=== PATIENT | male | born 1980 | race Caucasian/White ===

== ENCOUNTER 2018-03-29 14:20 | Outpatient (CLI) | payer OTHER | END 2018-03-29 14:21 | disposition critical access hospital (66) | LOC: EMS 14:20 | PROVIDERS: ATTEND Surgery | DX: S99.911A Unspecified injury of right ankle, initial encounter (principal); X50.0XXA Overexertion from strenuous movement or load, initial encounter; Y93.89 Activity, other specified; Y92.69 Other specified industrial and construction area as the place of occurrence of the external cause; Y99.0 Civilian activity done for income or pay | CPT/HCPCS: A0425; A0427 ==

== ENCOUNTER 2018-03-29 14:58 | Emergency (ER) | payer OTHER ==
--- NOTE | 2018-03-29 15:19 | ED Physician Documentation ---
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 No: Weakness, Numbness, Discolored Contributing factors: No: Anticoagulated Similar symptoms before: Has not had sx before Recently seen: Not recently seen Review of Systems Nose: denies: Rhinorrhea / runny nose, Congestion Throat: denies: Sore throat Cardiac: denies: Chest pain / pressure Respiratory: denies: Cough GI: denies: Abdominal Pain, Nausea, Vomiting Musculoskeletal: reports: Joint pain (right ankle), Joint swelling Neurologic: denies: Focal weakness, Numbness, Headache, Head injury Immunocompromised: denies: Immunocompromised PD PAST MEDICAL HISTORY - Past Medical History Cardiovascular: None Respiratory: None Neuro: None Endocrine/Autoimmune: None Musculoskeletal: None - Present Medications Home Medications: Ambulatory Orders Medication Instructions Recorded Confirmed HYDROcod/ACETAM 5/325 [[place] 5/325] 1 tab PO Q6H PRN #25 tablet 03/29/18 Naproxen [Naprosyn] 500 mg PO BID PRN #30 tablet 03/29/18 - Allergies Allergies/Adverse Reactions: Allergies Allergy/AdvReac Type Severity Reaction Status Date / Time No Known Drug Allergies Allergy Verified 03/29/18 15:06 PD ED PE NORMAL - Vitals Vital signs reviewed: Yes - General General: Alert and oriented X 3, No acute distress (right ankle in splint and patient seems comfortable enough with that. ), Well developed/nourished - HEENT HEENT: Atraumatic - Neck Neck: Supple, no meningeal sign, No bony TTP, No adenopathy - Cardiac Cardiac: RRR, No murmur - Respiratory Respiratory: Clear bilaterally - Abdomen Abdomen: Soft, Non tender - Back Back: No spinal TTP - Derm Derm: Normal color, Warm and dry - Extremities Extremities: Other (right ankle with tenderness and swelling fibular side above the mortis itself. Also tender medial malleolus with swelling. Achilles intact. Normal pulses, color, cap refill distally. ) - Neuro Neuro: Alert and oriented X 3, No motor deficit, No sensory deficit, Normal speech Eye Opening: Spontaneous Motor: Obeys Commands Verbal: Oriented GCS Score: 15 Results - Vitals Vitals: Vital Signs - 24 hr 03/29/18 03/29/18 15:00 17:49 Temperature 36.6 C Heart Rate 86 85 Respiratory 18 18 Rate Blood Pressure 186/107 H 165/105 H O2 Saturation 96 98 Oxygen O2 Source Room air - Rads (name of study) tib/fib and ankle Radiology: Prelim report reviewed, EMP read contemporaneously (distal fibular fracture above the ankle of the mortis. Medially ankle with small avulsion fracture and widening of the medial mortis. ) Procedures - Splint (location) right ankle Splint applied by: Tech Type of splint: Fiberglass, Posterior, Stirrup Other: Patient tolerated well, No complications, Neurovascular intact, Crutches provided PD MEDICAL DECISION MAKING - ED course Complexity details: reviewed results, re-evaluated patient (given IV Morphine to help with xray and splinting manipulations. ), considered differential, d/w patient, d/w urban design consultant (Dr. Cha - to splint and follow up in office. ) - Sepsis Event Vital Signs: Vital Signs - 24 hr 03/29/18 03/29/18 15:00 17:49 Temperature 36.6 C Heart Rate 86 85 Respiratory 18 18 Rate Blood Pressure 186/107 H 165/105 H O2 Saturation 96 98 Oxygen O2 Source Room air Departure - Departure Disposition: 01 Home, Self Care Clinical Impression: Bimalleolar fracture of right ankle Qualifiers: Encounter type: initial encounter Fracture type: closed Qualified Code(s): S82.841A - Displaced bimalleolar fracture of right lower leg, initial encounter for closed fracture Condition: Stable Record reviewed to determine appropriate education?: Yes Instructions: ED Fx Ankle General Follow-Up: Darci Cha MD [Provider Admit Priv/Credential] - Prescriptions: HYDROcod/ACETAM 5/325 [[place] 5/325] 1 tab PO Q6H PRN #25 tablet PRN Reason: Pain Naproxen [Naprosyn] 500 mg PO BID PRN #30 tablet PRN Reason: Pain Comments: Keep the splint on until follow-up with orthopedics. Call the orthopedic office tomorrow for an follow-up appointment for the end of the week. Use crutches for nonweightbearing. Ice elevate and rest the ankle often to reduce swelling. Use naproxen or ibuprofen twice daily for pain and inflammation. Add Tylenol or hydrocodone if needed for pain. This might need surgery to help stabilize the ligaments and bones around the ankle so it is in good location. Follow-up with orthopedics as planned for deciding if it needs surgery or just casting at that point. Either way you will not be able to walk fully or be back to work for likely 4-6 weeks. Forms: Activity restrictions
[2018-03-29] MEDS ORDERED: MORPHINE 10 MG/ML VIAL IVP STA ×3 (15:26→17:39)
--- NOTE | 2018-03-29 16:35 | XRAY Report ---
Procedure Date: 03/29/2018 Accession Number: [id number] / [id number] Procedure: XR - Tib/Fib RT CPT Code: FULL RESULT: EXAM: RIGHT TIBIA/FIBULA RADIOGRAPHY EXAM DATE: 03/29/2018 04:16 PM. CLINICAL HISTORY: Right lower leg/ankle injury today. COMPARISON: None. TECHNIQUE: 2 views. FINDINGS: Bones: Oblique fracture of distal fibular diaphysis with about 90% apposition. Otherwise unremarkable. Joints: Unremarkable knee. Widening of ankle mortise medially indicating disruption of the deltoid ligament. There is disruption of distal interosseous ligament and distal tibiofibular ligament as well. Soft Tissues: Mild soft tissue swelling. IMPRESSION: Distal fibular fracture with associated ligamentous injuries. RADIA
--- NOTE | 2018-03-29 17:00 | XRAY Report ---
Procedure Date: 03/29/2018 Accession Number: [id number] / [id number] Procedure: XR - Ankle 2 View RT CPT Code: FULL RESULT: EXAM: RIGHT ANKLE RADIOGRAPHY EXAM DATE: 03/29/2018 04:42 PM. CLINICAL HISTORY: Ankle injury. COMPARISON: Same day. TECHNIQUE: 1 views. FINDINGS: There is an oblique fracture of the distal fibular diaphysis with one half shaft width lateral displacement distal fragment. 3 mm mineralized density projects distal to the medial malleolus. Mild widening of the medial ankle clear space. No dislocation evident. Soft tissue swelling. IMPRESSION: 1. Mildly displaced distal fibula diaphyseal fracture. 2. Possible medial malleolus avulsion fracture. Widening of the medial clear space is consistent with ligamentous injury. RADIA
[2018-03-29] MEDS ORDERED: KETOROLAC 60 MG/2 ML VIAL IVP STA (17:39)
[2018-03-29 17:49] VITALS: BP 165/105
== END 2018-03-29 18:00 | disposition home or self-care (01) ==
LOC: EDBD → ED 14:58
DX: S82.841A Displaced bimalleolar fracture of right lower leg, initial encounter for closed fracture (principal); X50.1XXA Overexertion from prolonged static or awkward postures, initial encounter; Y93.89 Activity, other specified; Y99.0 Civilian activity done for income or pay
CPT/HCPCS: 1040M; 29515; 73590; 73600; 96374; 96375; 96376; 99283

== ENCOUNTER 2018-04-06 06:10 | Day surgery (SDC) | payer OTHER ==
[2018-04-06] MEDS ORDERED: ceFAZolin 2 GM/50 ML 2 GM/50 ML BAG IV ONE (06:34)
[2018-04-06] MEDS ORDERED: LACTATED RINGERS 1,000 ML IV ONE ×2 (07:00→08:35)
[2018-04-06] MEDS ORDERED: LIDOCAINE 2% 50 ML MDV IV ONE (07:30)
[2018-04-06] MEDS ORDERED: PROPOFOL 200 MG/20 ML VIAL IVP ONE (07:30)
[2018-04-06] MEDS ORDERED: ONDANSETRON 4 MG/2 ML VIAL IVP ONE (07:30)
[2018-04-06] MEDS ORDERED: MIDAZOLAM 2 MG/2 ML VIAL IVP ONE (07:30)
[2018-04-06] MEDS ORDERED: KETOROLAC 30 MG/ML VIAL IVP ONE (07:30)
[2018-04-06] MEDS ORDERED: DEXAMETHASONE 4 MG/ML VIAL IVP ONE (07:30)
[2018-04-06] MEDS ORDERED: fentaNYL 100 MCG/2 ML VIAL IVP ONE (07:30)
[2018-04-06] MEDS ORDERED: BUPIVACAINE 0.5%-EPI 1:200000 PF 30 ML VIAL ONE (07:42)
[2018-04-06] MEDS ORDERED: LIDOCAINE-MPF 1% 30 ML VIAL ONE (07:43)
[2018-04-06] MEDS ORDERED: LIDOCAINE 1% 50 ML MDV SUBQ ONE ×2 (07:53)
[2018-04-06] MEDS ORDERED: BUPIVACAINE 0.5%-EPI 1:200000 PF 30 ML VIAL SUBQ ONE ×2 (07:53)
[2018-04-06] MEDS ORDERED: ACETAMINOPHEN 1,000 MG/100 ML 100 ML IV ONE (09:37)
[2018-04-06] MEDS ORDERED: oxyCOD/ACETAMIN 5 MG/325 MG TABLET PO ONE (10:07)
[2018-04-06 10:19] VITALS: BP 139/85
--- NOTE | 2018-04-07 09:03 | OPERATIVE REPORT ---
DATE OF SERVICE: 04/06/2018 Physician: Esteban Vogel MD PREOPERATIVE DIAGNOSIS: Right ankle fibula fracture with syndesmosis tear. POSTOPERATIVE DIAGNOSIS: Right ankle fibula fracture with syndesmosis tear. PROCEDURE PERFORMED: Right ankle open reduction internal fixation of lateral malleolus fracture with placement of syndesmosis screw for syndesmosis repair. OPERATING SURGEON: Esteban Vogel MD COGNOS ADMINISTRATOR: General by Spencer Gaona. INDICATIONS FOR SURGERY: The patient is a 38-year-old male status post an industrial injury of his right ankle causing a fibula fracture with syndesmosis disruption and lateral talar subluxation. Recommendation is that he undergo surgical repair. FINDINGS AT SURGERY: The patient's fracture was short oblique and easily reduced, and once plated demonstrated continued syndesmosis instability corrected by syndesmosis screw. There was minor fragmentation off the medial malleolus, which was restored anatomically with fibular correction. DESCRIPTION OF OPERATIVE PROCEDURE: The patient was taken to the operating room, given a general anesthetic in a supine position. Tourniquet on the right thigh. The patient's hip was rolled up with a bolster. A surgical timeout was held, after which sterile prep and drape was completed and a lateral incision demarcated on the fibula approximately 3.5 inches in length. Under tourniquet control, the surgery was undertaken with a lateral incision, exposure of the fibula, irrigation and debridement of the fracture site, and reduction and fixation with a one-third Synthes tubular plate fixation. Gait was very good. Syndesmosis was tested with radiography and visual inspection, and it remained unstable and was corrected by placement of a syndesmosis screw, 3.5 mm, capturing all cortices of fibula and tibia. This restored congruity alignment and the mortise. The area was then flushed and irrigated. Tourniquet was deflated. Cautery controlled bleeding. Closure was with Vicryl interrupted subcutaneous and Monocryl closure of skin. Infiltration was performed with Marcaine and lidocaine with epinephrine. Sterile dressings were applied. The patient was then placed in a well-padded sugar-tong splint. He was transported to a gurney and taken to recovery room in stable condition. ESTIMATED BLOOD LOSS FOR THE PROCEDURE: Minimal. COMPLICATIONS: None. COUNTS: Sponge and needle counts correct. TD: 04/07/2018 08:37
== END 2018-04-06 06:11 | disposition home or self-care (01) ==
LOC: SDS 06:10
PROVIDERS: ATTEND Orthopaedic Surgery
PROC: 0QSJ04Z Reposition Right Fibula with Internal Fixation Device, Open Approach (ICD-10-PCS; principal; 2018-04-06 07:30)
DX: S82.841A Displaced bimalleolar fracture of right lower leg, initial encounter for closed fracture (principal); W18.30XA Fall on same level, unspecified, initial encounter; Y92.69 Other specified industrial and construction area as the place of occurrence of the external cause; Y99.0 Civilian activity done for income or pay
CPT/HCPCS: 27814; A9270; C1713; J0131; J0690; J7120

== ENCOUNTER 2019-12-02 09:36 | Emergency (ER) | payer SELFPAY ==
[2019-12-02 09:44] VITALS: BP 142/82
--- NOTE | 2019-12-02 10:41 | XRAY Report ---
Reason: check for surgical screw placement. Procedure Date: 12/02/2019 Accession Number: [id number] / [id number] Procedure: XR - Ankle 3 View RT CPT Code: Final Report FULL RESULT: EXAM: RIGHT ANKLE RADIOGRAPHY EXAM DATE: 12/02/2019 09:58 AM. CLINICAL HISTORY: Check for surgical screw placement. COMPARISON: ANKLE 3 VIEW RT 08/04/2018 8:00 AM. TECHNIQUE: 3 views. FINDINGS: Bones: Again seen is a lateral plate and screw construct securing a previously healed distal fibular fracture. As part of the construct, a single trans-syndesmotic screw which was noted to be fractured in 2018 has now laterally retracted causing a visual soft tissue protuberance above the lateral malleolus. Joints: The ankle mortise appears symmetric. No dislocation is seen. Soft Tissues: Soft tissue deformity due to the laterally translated screw. IMPRESSION: Interval lateral displacement of proximal screw fragment of the previously fractured trans-syndesmotic screw. RADIA
--- NOTE | 2019-12-02 11:51 | ED Physician Documentation ---
PD HPI LOWER EXT INJURY - Stated complaint Stated Complaint: RT ANKLE INJ - Chief complaint Chief Complaint: Ext Problem - History obtained from History obtained from: Patient - History of Present Illness PD HPI LOW EXT INJURY LOCATION: Right, Ankle Type of injury: Twist (did not fall nor significant impact, but just twisted ankle and felt abrupt pain and noted lump under skin in area of prior fracture repair (done here on [place] in 2018).) Timing - onset: Today Timing - details: Abrupt onset, Still present Worsened by: Moving, Palpating Associated symptoms: Other (firm lump pushing out skin lateral ankle.). No: Weakness, Numbness Similar symptoms before: Has not had sx before Review of Systems Neurologic: denies: Focal weakness, Numbness PD PAST MEDICAL HISTORY - Past Medical History Cardiovascular: None Respiratory: None Neuro: None Endocrine/Autoimmune: None GI: None : None HEENT: None Psych: None Musculoskeletal: None Derm: None - Past Surgical History Past Surgical History: No - Present Medications Home Medications: Ambulatory Orders Medication Instructions Recorded Confirmed HYDROcod/ACETAM 5/325 [[place] 5/325] 1 tab PO Q6H PRN #25 tablet 03/29/18 04/06/18 Naproxen [Naprosyn] 500 mg PO BID PRN #30 tablet 03/29/18 04/06/18 Naproxen 500 mg PO BID #20 tablet 12/02/19 - Allergies Allergies/Adverse Reactions: Allergies Allergy/AdvReac Type Severity Reaction Status Date / Time No Known Drug Allergies Allergy Verified 12/02/19 09:44 - Social History Does the pt smoke?: No Smoking Status: Never smoker Does the pt drink ETOH?: Yes Does the pt have substance abuse?: No - POLST Patient has POLST: No PD ED PE NORMAL - Vitals Vital signs reviewed: Yes - General General: Alert and oriented X 3, No acute distress, Well developed/nourished - Derm Derm: Normal color, Warm and dry - Extremities Extremities: Other (right lateral ankle with healed surgical scar. Lower aspect has firm lump under skin and tenting it some, c/w screw head. No redness of the skin. No effusion of ankle. ) - Neuro Neuro: No motor deficit, No sensory deficit Results - Vitals Vitals: Oxygen O2 Source Room air - Rads (name of study) right ankle xray Radiology: Prelim report reviewed (prior fracture repair plate and screws. Previously seen broken screw, with the outer part now looking acutely loosened and laterally displaced.), See rad report PD MEDICAL DECISION MAKING - ED course Complexity details: reviewed results (displaced lateral part of previously broken ortho screw. ), considered differential (apparent loosening and partial dislodgement of prior ortho screw. It is pushing out just under skin and tenting it. We do not have Ortho for couple of weeks, so I contacted Ortho in [facility], and Dr. Nieves is happy to see pt early next week (it is currently Thursday afternoon) and can remove screw in the office. ), d/w patient Departure - Departure Disposition: Home, Self Care Clinical Impression: Loosening of orthopedic screw Acute ankle pain Qualifiers: Laterality: right Qualified Code(s): M25.571 - Pain in right ankle and joints of right foot Condition: Stable Record reviewed to determine appropriate education?: Yes Follow-Up: MARITZA NIEVES [Physician No Access] - Prescriptions: Naproxen 500 mg PO BID #20 tablet Comments: I talked with Dr. Gates who is orthopedics at [facility] as well as [place]. He can see you in follow-up and will do it presumably early next week. Call today at [phone] to set him an appointment and let him know that we have talked with Dr. Gates about following up soon. Discharge Date/Time: 12/02/19 12:01
== END 2019-12-02 12:01 | disposition home or self-care (01) ==
LOC: ED 09:36
DX: T84.126A Displacement of internal fixation device of bone of right lower leg, initial encounter (principal); Y83.1 Surgical operation with implant of artificial internal device as the cause of abnormal reaction of the patient, or of later complication, without mention of misadventure at the time of the procedure; M25.571 Pain in right ankle and joints of right foot; Z87.81 Personal history of (healed) traumatic fracture
CPT/HCPCS: 99283

== ENCOUNTER 2019-12-13 06:40 | Day surgery (SDC) | payer OTHER ==
[~2019-12-13 06:40] MED LIST: CEFAZOLIN SODIUM IN 0.9 % NACL 2 GM/100 ML BAG IV ONE; LACTATED RINGERS 1,000 ML IV ONE
[2019-12-13] MEDS ORDERED: PROPOFOL 200 MG/20 ML VIAL IVP ONE (06:41)
[2019-12-13] MEDS ORDERED: KETOROLAC 30 MG/ML VIAL IVP ONE (06:41)
[2019-12-13] MEDS ORDERED: LIDOCAINE-MPF 2% 5 ML VIAL IM ONE (06:41)
[2019-12-13] MEDS ORDERED: BUPIVACAINE 0.25% PF 30 ML VIAL ONE (07:12)
[2019-12-13] MEDS ORDERED: LIDOCAINE 1% 50 ML MDV ONE (07:16)
--- NOTE | 2019-12-13 07:16 | ANESTHESIA ---
Pre-Anesthesia VS, & Labs - Diagnosis failed hardware s/p ORIF R ankle - Procedure hardware removal @R ankle ( 1 screw) Height 5 ft 7 in Weight (kg) 81.65 kg Body Mass Index 29.0 - NPO >8 hours Home Medications and Allergies Allergies/Adverse Reactions: Allergies Allergy/AdvReac Type Severity Reaction Status Date / Time No Known Drug Allergies Allergy Verified 12/02/19 09:44 Anes History & Medical History - Anesthetic History Anesthesia Complications: reports: No previous complications Family history of Anesthesia Complications: Denies Family history of Malignant Hyperthermia: Denies - Medical History Cardiovascular: reports: None Pulmonary: reports: None Gastrointestinal: reports: None Urinary: reports: None Neuro: reports: None Musculoskeletal: reports: None Endocrine/Autoimmune: reports: None Skin: reports: None Smoking Status: Never smoker Psychosocial: reports: Alcohol (social) - Surgical History Orthopedic: Other (ORIF R ankle) Exam General: Alert, Oriented x3, Cooperative Dental: WNL Neck Mobility: Normal Mallampati classification: II Thyromental Distance: greater than 6 cm Respiratory: Lungs clear, Normal breath sounds, No respiratory distress Cardiovascular: Regular rate Neurological: Normal speech Mental/Cognitive Status: Alert/Oriented X3, Normal for patient Cognitive Status: Within normal limits Plan Anesthesia Type: General (backup, will discuss with MD), MAC Consent for Procedure(s) Verified and Reviewed: Yes Code Status: Attempt Resuscitation ASA classification: 2-Mild systemic disease Is this case an emergency?: No
[2019-12-13] MEDS ORDERED: LIDOCAINE 1% 50 ML MDV SUBQ ONE (07:58)
[2019-12-13] MEDS ORDERED: HYDROcod/ACETAM 5/325 MG TABLET PO PRN (08:25)
[2019-12-13] MEDS ORDERED: ONDANSETRON 4 MG/2 ML VIAL IVP PRN (08:25)
[2019-12-13 08:35] VITALS: BP 120/92
--- NOTE | 2019-12-13 09:30 | IMMEDIATE POSTOPERATIVE NOTE ---
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 Advised avoid exertion in the meantime he may ice and elevate at rest. Recommend perioperative antibiotics 24 hours pain medications as necessary
--- NOTE | 2019-12-13 11:37 | OPERATIVE REPORT ---
DATE OF SERVICE: 12/13/2019 Physician: Jameel Figueredo MD PREOPERATIVE DIAGNOSIS: Right ankle broken syndesmotic screw hardware with impending open wound. POSTOPERATIVE DIAGNOSIS: Right ankle broken syndesmotic screw hardware with impending open wound. PROCEDURE: Right ankle, partial removal of syndesmotic screw hardware. INTRAOPERATIVE COMPLICATIONS: None noted. ESTIMATED BLOOD LOSS: Less than 5 mL PREOPERATIVE ANTIBIOTICS: Two grams of weight-based IV Ancef. ANESTHESIA: 10 mL of 1% plain Marcaine local anesthesia, as well as sedation per anesthesia team. ANESTHESIA PROVIDER: Wilmar Vogel CRNA COMPRESSION DEVICE: Contralateral left calf SCD boots. HISTORY OF PRESENT ILLNESS AND INDICATIONS: Patient is a 39-year-old gentleman with a painful impend ing prominent syndesmotic screw in his right ankle. He is generally doing quite well, aside from a s mall area where the hardware is pressing on his skin, compromising skin and threatening an open injur y. We had previously discussed risks, benefits, and alternatives of operative and nonoperative treat ment. We talked about the community health risks and timing of the procedure, and as indicated patie nt for operative intervention as this is not an elective situation. He verbalized understanding of t he risks, benefits and alternatives. His questions are answered. He verbalized his wish to proceed with operative treatment. Informed consent is given. DESCRIPTION OF PROCEDURE: After informed consent is given, patient's right ankle is identified as th e operative site. He is given weight-based IV antibiotics, brought to the operating room. He is giv en sedation per anesthesia team. He is placed supine in a safe position to avoid head, neck and extr emity injury. Patient's right lower extremity previously shaved around the ankle. He then has pre-c leaning with Hibiclens solution, followed by alcohol, followed by prep and draped using ChloraPrep so lution. Surgical pause identifies right ankle as the operative site. The prominent syndesmotic scre w is easily identified just posterior to the previous surgical incision. At this point, a small inci louann is made through the corresponding area of the previous surgical scar, just through skin and then spreading dissection carried out while the skin is pulled posteriorly, thereby revealing the screw h ead. This is twisted out of the bone and removed completely. The bone is curetted using a small cur ette. The wound is copiously irrigated. Hemostasis is achieved. Again, copious irrigation is perfo rmed, and then the skin is closed using interrupted nylon suture for skin after a single subcutaneous Vicryl suture. Care is taken to perform spreading dissection only to avoid cutting beneath the leve l of skin to avoid iatrogenic injury. At this point, the skin is washed and dried. It should be not ed that prior to the incision, a wheal of local anesthesia is made across the leg proximal to the rosaline nned incision site with the local anesthetic noted above. At this point, Xeroform dressing is applied. Dry sterile dressing and then Lavelle wrap. Patient tolerated the procedure well. Instrument and sponge counts are correct. Patient is transfer red to the recovery room in stable condition. Patient will be weightbearing as tolerated. He will avoid exertion. He will ice and elevate at rest . He will use perioperative antibiotics for 24 hours, pain medication, narcotics prescribed if neces kathleen. He is advised on the safe way to use this. Denies any contraindication to medications planned , will use them as directed for short course only, and follow up in 10-14 days or sooner should probl ems or questions arise. TD: 12/13/2019 11:22
== END 2019-12-13 06:41 | disposition home or self-care (01) ==
LOC: SDS 06:40
PROVIDERS: ATTEND Orthopaedic Surgery Sports Medicine
PROC: 0QPL04Z Removal of Internal Fixation Device from Right Tarsal, Open Approach (ICD-10-PCS; principal; 2019-12-13 07:30)
DX: T84.116A Breakdown (mechanical) of internal fixation device of bone of right lower leg, initial encounter (principal); Y79.3 Surgical instruments, materials and orthopedic devices (including sutures) associated with adverse incidents
CPT/HCPCS: 20680; A9270; J0690; J7120